=== PATIENT | male | born 1985 | race Two or more races ===

== ENCOUNTER 2020-03-08 17:01 | Emergency (ER) | payer SELFPAY ==
[~2020-03-08] VITALS: Ht 165.1 cm; Wt 75.0 kg
[2020-03-08 17:10] VITALS: Ht 165.1 cm; Wt 75.0 kg
[2020-03-08 17:49] LABS: BASOPHILS 0.3 % (0-2); EOSINOPHILS 3.5 % (0-7); HEMATOCRIT 45.6 % (42.0-54.0); HEMOGLOBIN 15.7 g/dL (13.5-17.5); IMMATURE GRANULOCYTES 0.3 % (0-5); LYMPHOCYTES 31.2 % (15-50); MCH 32.4 pg (26.0-34.0); MCHC 34.4 g/dL (31.0-37.0); MCV 94.2 fL (80.0-100.0); MEAN PLATELET VOLUME 10.9 fL (7.4-10.4); MONOCYTES 7.8 % (2-11); NEUTROPHILS 56.9 % (40-80); PLATELET COUNT 221 10x3/uL (130-400); RBC 4.84 10x6/uL (4.20-6.10); RDW 12.4 % (11.5-14.5); WBC 7.1 10x3/uL (4.8-10.8)
[2020-03-08 18:01] LABS: CALC OSMOLALITY 276 mosm/kg (275-300); CALCIUM 8.5 mg/dL (8.5-10.1); CARBON DIOXIDE 28.2 mmol/L (21.0-32.0); CHLORIDE - SERUM 104 mmol/L (98-107); CREATININE - SERUM 1.3 mg/dL (0.6-1.3); GLUCOSE 92 mg/dL (74-106); POTASSIUM - SERUM 3.6 mmol/L (3.5-5.1); SODIUM 139 mmol/L (136-145); UREA NITROGEN 11 mg/dL (7-18); eGFR NON AFRICAN AMERICAN 67 mL/min (90-120)
[2020-03-08 18:02] LABS: INR 0.99 (0.85-1.17); PROTIME 13.1 SECONDS (11.6-15.0)
[2020-03-08 18:03] LABS: APTT 33.8 SECONDS (22.8-39.4)
[2020-03-08 18:04] LABS: D-DIMER-QUANTITATIVE 0.33 ug/mLFEU (0.20-0.54)
[2020-03-08 18:16] LABS: ALBUMIN 4.3 g/dL (3.4-5.0); ALKALINE PHOSPHATASE 61 U/L (30-120); ALT (SGPT) 46 U/L (10-68); CREATINE KINASE 139 UL (21-232); MAGNESIUM - SERUM 2.1 mg/dL (1.8-2.4); PROTEIN - SERUM 7.6 g/dL (6.4-8.2)
[2020-03-08 18:17] LABS: TROPONIN-I < 0.017 ng/mL (0.000-0.060)
[2020-03-08] MEDS ORDERED: NAPROSYN500 MG PO (22:35)
[2020-03-08 22:38] VITALS: BP 136/87
== END 2020-03-08 22:38 | disposition home or self-care (01) ==
LOC: D.ER 17:01 → EDBD 17:01 → D.ER 22:38
PROVIDERS: Family Medicine
DX: R07.9 Chest pain, unspecified (principal); M25.512 Pain in left shoulder